=== PATIENT | male | born 1940 | race Two or more races ===

== ENCOUNTER 2021-10-20 10:15 | Day surgery (SDC) | payer MEDICARE, MEDICAID ==
[~2021-10-20] VITALS: Ht 160 cm; Wt 86.6 kg
[2021-10-20] VITALS (10 sets, daily range): BP systolic 97–128; BP diastolic 41–80
[2021-10-20] MEDS ORDERED: AMLO-708 PO (10:49)
[2021-10-20] MEDS ORDERED: APIX5TAB3 PO (10:49)
[2021-10-20] MEDS ORDERED: ATOR40TA72 PO (10:49)
[2021-10-20] MEDS ORDERED: FLUO40CA PO (10:49)
[2021-10-20] MEDS ORDERED: HYDR-3972 PO (10:49)
[2021-10-20] MEDS ORDERED: TROS20TA4 PO (10:49)
[2021-10-20] MEDS ORDERED: OMEP20CA16 PO (10:49)
[2021-10-20] MEDS ORDERED: DILT-35 PO (10:49)
[2021-10-20] MEDS ORDERED: MAGN250T11 PO (10:56)
[2021-10-20] MEDS ORDERED: ASPI-611 PO (10:56)
[2021-10-20] MEDS ORDERED: DUTA0.5C40 PO (10:56)
[2021-10-20] MEDS ORDERED: DOXA4TAB2 PO (10:56)
[2021-10-20 11:25] LABS: BASOPHILS # (AUTO) 0.1 X10'3 (0-0.2); BASOPHILS % (AUTO) 1.1 % (0-1); EOSINOPHILS # (AUTO) 0.1 X10'3 (0-0.9); EOSINOPHILS % (AUTO) 1.8 % (0-6); HEMATOCRIT 36.5 % (42.0-52.0); HEMOGLOBIN 12.2 g/dl (14.0-17.9); LYMPHOCYTES # (AUTO) 1.5 X10'3 (1.1-4.8); LYMPHOCYTES % (AUTO) 23.7 % (21-51); MEAN CORPUSCULAR HEMOGLOBIN 31.1 PG (27.0-31.0); MEAN CORPUSCULAR HGB CONC 33.5 g/dL (33.0-36.5); MEAN CORPUSCULAR VOLUME 92.9 FL (78-98); MEAN PLATELET VOLUME 7.7 FL (7.4-10.4); MONOCYTES # (AUTO) 0.7 X10'3 (0-0.9); NEUTROPHILS % (AUTO) 62.4 % (42-75); PLATELET COUNT 230 X10'3 (140-440); RED BLOOD COUNT 3.93 X10'6 (4.70-6.10); RED CELL DISTRIBUTION WIDTH 13.6 % (11.5-14.5); WHITE BLOOD COUNT 6.4 X10'3 (4.5-11.0)
[2021-10-20 11:33] LABS: ALBUMIN 3.8 G/DL (3.4-5.0); ANION GAP 9 (8-16); BLOOD UREA NITROGEN 26 MG/DL (7-18); CALCIUM 8.6 MG/DL (8.5-10.1); CHLORIDE 105 MMOL/L (99-107); CREATININE 1.73 MG/DL (0.60-1.10); GLUCOSE 125 MG/DL (70-104); MAGNESIUM 2.1 MG/DL (1.5-2.4); POTASSIUM 3.7 MMOL/L (3.5-5.1); SODIUM 141 MMOL/L (135-145); TOTAL CARBON DIOXIDE 26.8 MMOL/L (24-32); eGFR 38 ML/MIN
[2021-10-20] MEDS ORDERED: midazolam 1 mg/ML 2ml injection ONE (12:16)
[2021-10-20] MEDS ORDERED: fentaNYL/PF 50MCG/1 ML 2ML syringe ONE (12:16)
[2021-10-20] MEDS ORDERED: proCHLORperazine 10 MG/2 ml inj ONE (12:16)
[2021-10-20] MEDS ORDERED: vancomycin 1,000mg inj ONE (12:16)
[2021-10-20] MEDS ORDERED: LIDOCAINE 2% w/EPI 1:100:000 30mL injection MDV**cath lab 1 only ONE (12:16)
--- NOTE | 2021-10-20 12:35 | NUR ---
Pt to [employer], report given to Davis MALDONADO
--- NOTE | 2021-10-20 14:00 | NUR ---
Pt returned from [employer], received report form Davis MALDONADO. Dressing to left upper chest CD&I. No c/o pain. VSS.
[2021-10-20] MEDS ORDERED: normal saline 1000ml 1,000 ML IV ONE (14:40)
--- NOTE | 2021-10-20 14:40 | NUR ---
Pt sitting up in bed eating sandwich and drinking water without problems, VSS, continues to deny pain.
--- NOTE | 2021-10-20 15:00 | NUR ---
Phoned pt albert Ray and updated him of pt approx DC home time. Pt sleeping in bed.
--- NOTE | 2021-10-20 15:45 | NUR ---
Written and Verbal DC instructions given to pt and son, questions answered, verbalize understanding. PIV DC cath intact. Dressing to left upper chest CD&I, Son assisted pt to get dressed, steady on feet.
--- NOTE | 2021-10-20 16:15 | NUR ---
DC pt to home with son and all belongings. Transferred to private car via WC, pt able to transfer self to car, gait steady.
[2021-10-21] MEDS ORDERED: vancomycin 1,500 MG in NS 300ml IV soln IV ONE (05:30)
[2021-10-21] MEDS ORDERED: ceFAZolin inj. 2,000 MG in dextrose 5%-water 100 ML IV ONE (05:30)
== END 2021-10-20 16:15 | disposition home or self-care (01) ==
LOC: SSTAY O 10:15
PROVIDERS: ATTEND Internal Medicine Cardiovascular Disease
DX: Z45.010 Encounter for checking and testing of cardiac pacemaker pulse generator [battery] (principal); I48.0 Paroxysmal atrial fibrillation; I10 Essential (primary) hypertension; E78.5 Hyperlipidemia, unspecified; E11.9 Type 2 diabetes mellitus without complications; G47.30 Sleep apnea, unspecified; N40.0 Benign prostatic hyperplasia without lower urinary tract symptoms; F32.A Depression, unspecified; G89.29 Other chronic pain; K21.9 Gastro-esophageal reflux disease without esophagitis; D64.9 Anemia, unspecified; F10.10 Alcohol abuse, uncomplicated; F41.9 Anxiety disorder, unspecified; Z98.890 Other specified postprocedural states; Z79.84 Long term (current) use of oral hypoglycemic drugs; Z79.82 Long term (current) use of aspirin; Z79.899 Other long term (current) drug therapy; Z86.73 Personal history of transient ischemic attack (TIA), and cerebral infarction without residual deficits
CPT/HCPCS: 33228; 36415; 80048; 83735; 85025; 85610; 93005; 99152; 99153; C1785; J0780; J2250; J3010; J3370; J3490; J7040; A4620; A6258